=== PATIENT | female | born 1955 | race Caucasian/White ===

== ENCOUNTER → 2020-09-17 | Outpatient (CLI) | payer OTHER ==
[~2020-09-17] MED LIST: CELEXA40 MG PO; CIPROFLOXACIN500 MG PO; DIOVAN HCT PO; Diabeta,Micron2.5 MG PO; HYDR25T PO; HYDROCHLOROTH12.5 MG; IBU800 MG PO; KLOR-CON SPRIN10 MEQ PO; METFORMIN1000 MG PO; MOTRIN800 MG PO; NORFLEX100 MG PO; PERCOCET 325 MG1 TA2 PO
== END | disposition home or self-care (01) ==
LOC: COVID19 08:08
PROVIDERS: ATTEND Radiology Diagnostic Radiology
DX: Z01.818 Encounter for other preprocedural examination (principal); Z20.822 Contact with and (suspected) exposure to COVID-19